=== PATIENT | male | born 1945 | race Caucasian/White ===

== ENCOUNTER 2022-01-11 14:28 | Emergency (ER) | payer OTHER, MEDICARE ==
[2022-01-11 15:19] VITALS: TEMP 97.6
[2022-01-11] MEDS ORDERED: SODIUM CHLORIDE 0.9% 500 ML 500 ML IV STA (18:14)
[2022-01-11] MEDS ORDERED: ONDANSETRON 4 MG/2 ML VIAL IVP STA (18:14)
[2022-01-11 19:01] LABS: Appearance,Urine Clear (Clear); Bilirubin,Urine Negative (Negative); Blood,Urine Negative (Negative); Color,Urine Light Yellow; Glucose,Urine (UA) Negative (Negative); Ketones,Urine Negative (Negative); Leukocyte Esterase,Urine Negative (Negative); Nitrite,Urine Negative (Negative); PH, Urine 6.5 (5.0-8.0); Protein,Urine Negative (Negative); Specific Gravity,Urine 1.004 (1.001-1.035); Urobilinogen,Urine <2.0 mg/dL (<2.0)
[2022-01-11 19:08] LABS: Albumin 4.1 g/dL (3.5-5.0); Calcium 8.8 mg/dL (8.4-10.2); Potassium 4.8 mmol/L (3.5-5.1); Total Bilirubin 0.7 mg/dL (0.2-1.3); Total Protein 6.4 g/dL (6.3-8.2)
[2022-01-11 19:12] LABS: Partial Thromboplastin Time 25.9 sec (22.0-30.0); Prothrombin Time 10.7 sec (9.0-12.0)
[2022-01-11 19:23] LABS: Basophils % (A) 0 %; Eosinophils # (A) 0.1 k/uL (0-0.7); Eosinophils % (A) 1 %; HCT 37.4 % (39.0-53.0); Lymphocytes # (A) 0.9 k/uL (1.0-4.8); Lymphocytes % (A) 17 %; MCH 31.7 pg (25.0-35.0); MCHC 34.9 g/dL (31.0-37.0); MCV 90.8 fL (80.0-100.0); Mean Platelet Volume 7.2; Monocytes # (A) 0.3 k/uL (0-1.0); Monocytes % (A) 6 %; Neutrophils # (A) 3.8 k/uL (1.3-7.7); Neutrophils % (A) 74 %; Platelet Count 172 k/uL (150-450); RBC 4.12 m/uL (4.30-5.90); RDW 13.9 % (11.5-15.5); WBC 5.1 k/uL (3.8-10.6)
--- NOTE | 2022-01-11 20:00 | CT ---
EXAMINATION TYPE: CT abdomen pelvis w con DATE OF EXAM: 01/11/2022 COMPARISON: None available HISTORY: dizzy, nausea and weakness CT DLP: 1087.9 mGycm Automated exposure control for dose reduction was used. TECHNIQUE: Helical acquisition of images was performed from the lung bases through the pelvis. CONTRAST: Performed without Oral Contrast and with IV Contrast, patient injected with 100 mL of Isovue 300. FINDINGS: LUNG BASES: No significant abnormality is appreciated. LIVER/GB: Cholecystectomy with moderate pneumobilia. Otherwise no acute abnormality is appreciated. PANCREAS: No acute abnormality is seen. Absence of the pancreatic body and tail, consistent with stef enital versus chronic change. SPLEEN: No significant abnormality is seen. ADRENALS: No significant abnormality is seen. KIDNEYS: No significant abnormality is seen. FREE AIR: No free air is visualized. RETROPERITONEAL ADENOPATHY: None visualized REPRODUCTIVE ORGANS: No significant abnormality is seen URINARY BLADDER: No significant abnormality is seen. PELVIC ADENOPATHY: None visualized. OSSEOUS STRUCTURES: No significant abnormality is seen. BOWEL: No acute abnormality is seen. Small ventral hernia partially with laxity of the abdominal wal l and partially containing bowel loops. No bowel obstruction. No acute appendicitis. OTHER: None IMPRESSION: CHOLECYSTECTOMY WITH PNEUMOBILIA, LIKELY BENIGN AND SECONDARY TO INCOMPETENT VALVE. OTHERWISE NO ACUTE ABNORMALITY. CHRONIC AND INCIDENTAL FINDINGS ABOVE.
[2022-01-11 20:21] VITALS: RESP 16
--- NOTE | 2022-01-11 20:21 | ED ---
General Adult HPI - General Chief complaint: Nausea/Vomiting/Diarrhea Stated complaint: Dizziness/Shaking Time Seen by Provider: 01/11/22 18:05 Source: patient, family, RN notes reviewed, old records reviewed Mode of arrival: wheelchair Limitations: no limitations - History of Present Illness Initial comments: This is a 76-year-old male that presents to the emergency room with complaints of persistent nausea, dry mouth and decreased appetite with occasional dizziness. Patient states he has been seen at [facility] on Sunday and again on Sunday for persistent nausea. He did call his primary care doctor and they referred him back to an emergency room for evaluation. Patient states that he had blood tests and x-rays done at the previous hospital and was prescribed Zofran but he still feels nauseated. He denies any chest pain or d ifficulty in breathing. No fevers. No cough. Location: abdomen Severity scale (1-10): 4 Consistency: intermittent Associated Symptoms: loss of appetite, nausea/vomiting, other (dizzy) Treatments Prior to Arrival: other (2 ER visits to [facility]) - Related Data Home Medications Medication Instructions Recorded Confirmed HYDROcodone/APAP 7.5-325MG [[place] 1 tab PO BID PRN 01/11/22 01/11/22 7.5-325] Loratadine 10 mg PO DAILY 01/11/22 01/11/22 Methocarbamol [Robaxin-750] 750 mg PO TID PRN 01/11/22 01/11/22 Morphine Sulfate ER [Ms Contin] 15 mg PO Q12HR 01/11/22 01/11/22 Simvastatin [Zocor] 80 mg PO HS 01/11/22 01/11/22 Vit C/E/Zn/Coppr/Lutein/Zeaxan 1 cap PO BID 01/11/22 01/11/22 [Preservision Areds 2 Softgel] lisinopriL [Zestril] 20 mg PO DAILY 01/11/22 01/11/22 metFORMIN HCL 500 mg PO BID 01/11/22 01/11/22 Previous Rx's Medication Instructions Recorded Famotidine [Pepcid] 20 mg PO BID #28 tablet 01/11/22 Metoclopramide [Reglan] 10 mg PO TID PRN #15 tab 01/11/22 Allergies Allergy/AdvReac Type Severity Reaction Status Date / Time niacin Allergy Rash/Hives Verified 01/11/22 20:22 vancomycin Allergy Rash/Hives Verified 01/11/22 20:22 Review of Systems ROS Statement: Those systems with pertinent positive or pertinent negative responses have been documented in the HPI. ROS Other: All systems not noted in ROS Statement are negative. 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 Absent: respiratory distress, chest wall tenderness Cardiovascular Exam: Present: regular rate GI/Abdominal exam: Present: soft. Absent: distended, tenderness Extremities exam: Present: normal capillary refill Back exam: Absent: tenderness, CVA tenderness (R), CVA tenderness (L) Neurological exam: Present: alert, oriented X3 Psychiatric exam: Present: normal affect, normal mood Skin exam: Present: warm, dry, normal color. Absent: cyanosis, diaphoretic, petechiae, pallor Course Vital Signs 01/11/22 01/11/22 01/11/22 15:11 20:20 21:37 Temperature 97.6 F Pulse Rate 61 58 L 65 Respiratory 20 16 Rate Blood Pressure 170/68 160/85 165/74 O2 Sat by Pulse 98 98 Oximetry EKG Findings - EKG Results: EKG: sinus rhythm (Sinus bradycardia with ventricular rate 57, MN interval 0.144, QRS 0.150, QTC 0.424) Medical Decision Making - Medical Decision Making This is the patient's third ER visit since Sunday. Patient was seen at [facility] on Sunday and again on Sunday for persistent nausea and decreased appetite. He did contact his primary care doctor today and was referred back to the emergency room for persistent nausea. I did attempt to obtain records from [facility] and was unsuccessful. On exam, abdomen soft and nontender. There is no right lower quadrant pain. Labs are unremarkable with no evidence of leukocytosis. CT abdomen was performed and shows no acute abnormality. Cholecystectomy noted. There is also a small ventral hernia noted. No evidence of acute appendicitis, no bowel obstruction. Vital signs are stable. Patient will be referred to his primary care doctor, given a prescription for Pe pcid and Reglan directed to discuss symptoms with his primary care doctor for possible referral to GI. Case discussed with Dr. Duff - Lab Data Result diagrams: 01/11/22 18:29 01/11/22 18:29 Lab Results 01/11/22 01/11/22 01/11/22 Range/Units 18:29 18:29 18:29 WBC 5.1 (3.8-10.6) k/uL RBC 4.12 L (4.30-5.90) m/uL Hgb 13.0 (13.0-17.5) gm/dL Hct 37.4 L (39.0-53.0) % MCV 90.8 (80.0-100.0) fL MCH 31.7 (25.0-35.0) pg MCHC 34.9 (31.0-37.0) g/dL RDW 13.9 (11.5-15.5) % Plt Count 172 (150-450) k/uL MPV 7.2 Neutrophils % 74 % Lymphocytes % 17 % Monocytes % 6 % Eosinophils % 1 % Basophils % 0 % Neutrophils # 3.8 (1.3-7.7) k/uL Lymphocytes # 0.9 L (1.0-4.8) k/uL Monocytes # 0.3 (0-1.0) k/uL Eosinophils # 0.1 (0-0.7) k/uL Basophils # 0.0 (0-0.2) k/uL PT (9.0-12.0) sec INR (<1.2) APTT (22.0-30.0) sec Sodium 134 L (137-145) mmol/L Potassium 4.8 (3.5-5.1) mmol/L Chloride 102 (98-107) mmol/L Carbon Dioxide 27 (22-30) mmol/L Anion Gap 5 mmol/L BUN 16 (9-20) mg/dL Creatinine 0.97 (0.66-1.25) mg/dL Est GFR (CKD-EPI)AfAm 89 (>60 ml/min/1.73 sqM) Est GFR (CKD-EPI)NonAf 77 (>60 ml/min/1.73 sqM) Glucose 162 H (74-99) mg/dL Plasma Lactic Acid Mor (0.7-2.0) mmol/L Calcium 8.8 (8.4-10.2) mg/dL Total Bilirubin 0.7 (0.2-1.3) mg/dL AST 33 (17-59) U/L ALT 24 (4-49) U/L Alkaline Phosphatase 71 (38-126) U/L Troponin I (0.000-0.034) ng/mL Total Protein 6.4 (6.3-8.2) g/dL Albumin 4.1 (3.5-5.0) g/dL Amylase 50 (30-110) U/L Lipase 117 (23-300) U/L Urine Color Light Yellow Urine Appearance Clear (Clear) Urine pH 6.5 (5.0-8.0) Ur Specific Ves[place] 1.004 (1.001-1.035) Urine Protein Negative (Negative) Urine Glucose (UA) Negative (Negative) Urine Ketones Negative (Negative) Urine Blood Negative (Negative) Urine Nitrite Negative (Negative) Urine Bilirubin Negative (Negative) Urine Urobilinogen <2.0 (<2.0) mg/dL Ur Leukocyte Esterase Negative (Negative) 01/11/22 01/11/22 01/11/22 Range/Units 18:29 18:29 18:29 WBC (3.8-10.6) k/uL RBC (4.30-5.90) m/uL Hgb (13.0-17.5) gm/dL Hct (39.0-53.0) % MCV (80.0-100.0) fL MCH (25.0-35.0) pg MCHC (31.0-37.0) g/dL RDW (11.5-15.5) % Plt Count (150-450) k/uL MPV Neutrophils % % Lymphocytes % % Monocytes % % Eosinophils % % Basophils % % Neutrophils # (1.3-7.7) k/uL Lymphocytes # (1.0-4.8) k/uL Monocytes # (0-1.0) k/uL Eosinophils # (0-0.7) k/uL Basophils # (0-0.2) k/uL PT 10.7 (9.0-12.0) sec INR 1.0 (<1.2) APTT 25.9 (22.0-30.0) sec Sodium (137-145) mmol/L Potassium (3.5-5.1) mmol/L Chloride (98-107) mmol/L Carbon Dioxide (22-30) mmol/L Anion Gap mmol/L BUN (9-20) mg/dL Creatinine (0.66-1.25) mg/dL Est GFR (CKD-EPI)AfAm (>60 ml/min/1.73 sqM) Est GFR (CKD-EPI)NonAf (>60 ml/min/1.73 sqM) Glucose (74-99) mg/dL Plasma Lactic Acid Mor 1.0 (0.7-2.0) mmol/L Calcium (8.4-10.2) mg/dL Total Bilirubin (0.2-1.3) mg/dL AST (17-59) U/L ALT (4-49) U/L Alkaline Phosphatase (38-126) U/L Troponin I <0.012 (0.000-0.034) ng/mL Total Protein (6.3-8.2) g/dL Albumin (3.5-5.0) g/dL Amylase (30-110) U/L Lipase (23-300) U/L Urine Color Urine Appearance (Clear) Urine pH (5.0-8.0) Ur Specific Vesper (1.001-1.035) Urine Protein (Negative) Urine Glucose (UA) (Negative) Urine Ketones (Negative) Urine Blood (Negative) Urine Nitrite (Negative) Urine Bilirubin (Negative) Urine Urobilinogen (<2.0) mg/dL Ur Leukocyte Esterase (Negative) Disposition Clinical Impression: Nausea Disposition: HOME SELF-CARE Condition: Good Instructions (If sedation given, give patient instructions): Acute Nausea and Vomiting (ED) Additional Instructions: Take the Reglan and Pepcid as prescribed. Do not take the Zofran as previously prescribed. Follow-up with the primary care doctor this week. Return to the emergency room with any new or concerning symptoms. Prescriptions: Famotidine [Pepcid] 20 mg PO BID #28 tablet Metoclopramide [Reglan] 10 mg PO TID PRN #15 tab PRN Reason: GERD Is patient prescribed a controlled substance at d/c from ED?: No Referrals: [facility],Clinic [Primary Care Provider] - 1-2 days Time of Disposition: 20:21
[2022-01-11] MEDS ORDERED: METOCLOPRAMIDE 5 MG/ML 2 ML VIAL IVP STA (20:48)
[2022-01-11] MEDS ORDERED: FAMOTIDINE 20 MG TAB PO STA (20:48)
[2022-01-11 21:41] VITALS: BP 165/74; PULSE 65
== END 2022-01-11 21:38 | disposition home or self-care (01) ==
LOC: EC 14:28
DX: R11.2 Nausea with vomiting, unspecified (principal); E11.9 Type 2 diabetes mellitus without complications; E78.5 Hyperlipidemia, unspecified; I10 Essential (primary) hypertension; Z87.891 Personal history of nicotine dependence; Z88.1 Allergy status to other antibiotic agents; Z88.3 Allergy status to other anti-infective agents
CPT/HCPCS: 36415; 93005; 80053; 82150; 83605; 83690; 84484; 85025; 85610; 85730; 81003; 74177; 99284; 96374; 96375; J2765; J2405; Q9967

== ENCOUNTER 2022-08-09 14:02 | Emergency (ER) | payer OTHER, MEDICARE ==
[2022-08-09 15:00] VITALS: TEMP 98.5
--- NOTE | 2022-08-09 16:17 | XR ---
EXAMINATION TYPE: XR chest 2V DATE OF EXAM: 08/09/2022 COMPARISON: NONE HISTORY: Cough. TECHNIQUE: Frontal and lateral views of the chest are obtained. FINDINGS: Eventration of the anterior aspect right hemidiaphragm. There is no suspicious focal air sp mathew opacity, pleural effusion, or pneumothorax seen. The cardiac silhouette size is within normal li mits. The osseous structures are intact. Cholecystectomy clips noted on lateral view. IMPRESSION: No acute pulmonary process.
[2022-08-09] MEDS ORDERED: methylPREDNISolone SOD SUCCI 125 MG/2 ML VIAL IM ONE (16:51)
--- NOTE | 2022-08-09 16:53 | ED ---
URI HPI - General Chief Complaint: Upper Respiratory Infection Stated Complaint: sob, cough - sent urgent care Time Seen by Provider: 08/09/22 16:24 Source: patient Mode of arrival: ambulatory Limitations: no limitations - History of Present Illness Initial Comments: Patient is a 77-year-old male with history of diabetes, hypertension, hyperlipidemia presenting with chief complaint of cough. Patient was sent from urgent care. Patient has been experiencing cough for the last 3 weeks. He was treated recently with doxycycline and prednisone at home. He has been taking nebulized albuterol treatments at home as well. States that he is coughing frequently and is affecting his sleep. He feels that he has phlegm that he cannot cough up. No chest pain or difficulty breathing. No palpitations, abdominal pain, nausea, vomiting, headache, vision or hearing changes, neck pain or stiffness, fever, chills. - Related Data Home Medications Medication Instructions Recorded Confirmed HYDROcodone/APAP 7.5-325MG [[place] 1 tab PO BID PRN 01/11/22 01/11/22 7.5-325] Loratadine 10 mg PO DAILY 01/11/22 01/11/22 Morphine Sulfate ER [Ms Contin] 15 mg PO Q12HR 01/11/22 01/11/22 Simvastatin [Zocor] 80 mg PO HS 01/11/22 01/11/22 Vit C/E/Zn/Coppr/Lutein/Zeaxan 1 cap PO BID 01/11/22 01/11/22 [Preservision Areds 2 Softgel] lisinopriL [Zestril] 20 mg PO DAILY 01/11/22 01/11/22 metFORMIN HCL 500 mg PO BID 01/11/22 01/11/22 methocarbamoL [Robaxin-750] 750 mg PO TID PRN 01/11/22 01/11/22 Previous Rx's Medication Instructions Recorded Famotidine [Pepcid] 20 mg PO BID #28 tablet 01/11/22 Metoclopramide [Reglan] 10 mg PO TID PRN #15 tab 01/11/22 Albuterol Nebulized [Ventolin 2.5 mg INHALATION Q4H PRN 8 Days 08/09/22 Nebulized] #150 ml methylPREDNISolone Dose Pack 4 mg PO DIRECTED #1 packet 08/09/22 [Medrol Dose Pack] Allergies Allergy/AdvReac Type Severity Reaction Status Date / Time niacin Allergy Rash/Hives Verified 08/09/22 15:00 vancomycin Allergy Rash/Hives Verified 08/09/22 15:00 Review of Systems ROS Statement: Those systems with pertinent positive or pertinent negative responses have been documented in the HPI. ROS Other: All systems not noted in ROS Statement are negative. 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, cholesterol eye stroke, macular degeneration, reversed heart valve History of Any Multi-Drug Resistant Organisms: None Reported Past Surgical History: Cholecystectomy, Tonsillectomy Additional Past Surgical History / Comment(s): cataract Past Psychological History: Depression Smoking Status: Former smoker Past Alcohol Use History: None Reported Past Drug Use History: None Reported General Exam Limitations: no limitations General appearance: alert, in no apparent distress Head exam: Present: atraumatic, normocephalic, normal inspection Eye exam: Absent: scleral icterus, conjunctival injection, periorbital swelling Neck exam: Present: normal inspection Respiratory exam: Present: rhonchi. Absent: respiratory distress, wheezes, rales, stridor, accessory muscle use Cardiovascular Exam: Present: regular rate, normal rhythm, normal heart sounds. Absent: systolic murmur, diastolic murmur, rubs, gallop, clicks Neurological exam: Present: alert, oriented X3, CN II-XII intact Psychiatric exam: Present: normal affect, normal mood Skin exam: Present: warm, dry, intact, normal color. Absent: rash Course Vital Signs 08/09/22 14:58 Temperature 98.5 F Pulse Rate 73 Respiratory 20 Rate Blood Pressure 137/70 O2 Sat by Pulse 95 Oximetry Medical Decision Making - Medical Decision Making Patient is a 77-year-old male presenting with chief complaint of persistent cough. He has had symptoms for the last 3 weeks. Completed a course of doxycycline and prednisone. Sent here by urgent care. On physical examination there are diffuse rhonchi, lung sounds do improve after coughing. Patient is negative for influenza, RSV, covid. Chest x-ray shows no acute cardiopulmonary process. On my interpretation I do see eventration right hemidiaphragm, but no consolidation or other acute process. Patient is educated on these findings, he is provided with Solu-Medrol 125 IM and Medrol Dosepak for home. Prescription sent for albuterol nebulizer refills.Follow-up with PCP. Report back to ER with any new or worsening symptoms. Discussed return parameters and answered all questions. Patient conveyed verbal understanding and agreed to the plan. I discussed this case in detail with my attending Dr. Morataya - Lab Data Lab Results 08/09/22 Range/Units 15:02 Influenza Type A (PCR) Not Detected (Not Detectd) Influenza Type B (PCR) Not Detected (Not Detectd) RSV (PCR) Not Detected (Not Detectd) SARS-CoV-2 (PCR) Not Detected (Not Detectd) Disposition Clinical Impression: Bronchitis Disposition: HOME SELF-CARE Condition: Good Instructions (If sedation given, give patient instructions): Acute Bronchitis (ED) Additional Instructions: Follow-up with PCP. Report back to ER with any new or worsening symptoms. Take medication as prescribed. Prescriptions: methylPREDNISolone Dose Pack [Medrol Dose Pack] 4 mg PO DIRECTED #1 packet Albuterol Nebulized [Ventolin Nebulized] 2.5 mg INHALATION Q4H PRN 8 Days #150 ml PRN Reason: Shortness Of Breath Is patient prescribed a controlled substance at d/c from ED?: No Referrals: [facility],Clinic [Primary Care Provider] - 1-2 days Time of Disposition: 16:52
[2022-08-09 17:46] VITALS: BP 147/85; PULSE 78; RESP 22
== END 2022-08-09 17:46 | disposition home or self-care (01) ==
LOC: EC 14:02 → SUPCPDRO 14:02 → EC 17:46
DX: J40 Bronchitis, not specified as acute or chronic (principal); F32.A Depression, unspecified; E11.9 Type 2 diabetes mellitus without complications; I10 Essential (primary) hypertension; E78.5 Hyperlipidemia, unspecified; Z79.899 Other long term (current) drug therapy; Z79.891 Long term (current) use of opiate analgesic; Z79.2 Long term (current) use of antibiotics; Z20.822 Contact with and (suspected) exposure to COVID-19
CPT/HCPCS: 87636; 71046; 99284; 96372; J2930

== ENCOUNTER → 2023-11-07 | Outpatient (CLI) | payer OTHER ==
--- NOTE | 2023-11-08 15:35 | US ---
EXAMINATION TYPE: US groin RT DATE OF EXAM: 11/07/2023 COMPARISON: 01/11/2022 - CT CLINICAL INDICATION: Male, 78 years old with history of G89.29 other chronic pain; Hx Epigastric jimmy ia, Right groin pain x few months TECHNIQUE: Multiple sonographic images of the right inguinal region. FINDINGS: Recovery Manager notes: ? Fat containing hernia - no peristalsis seen at AOC = 2.7 x 1.1 x 1.8 cm ? Lymph node with solid mass = 4.4 x 1.0 x 2.3 cm IMPRESSION: 1. Possible fatty right inguinal hernia measuring 2.7 cm at the area of concern. 2. Additionally, there is the appearance of an enlarged inguinal lymph node measuring up to 4.4 x 2.3 x 1.0 cm. Depending on clinical impression and physical exam findings, either short interval follow- up ultrasound versus further imaging assessment such as with CT abdomen and pelvis and tissue samplin g.
== END | disposition home or self-care (01) ==
LOC: RADUSWWP 11:45
PROVIDERS: ATTEND Family Medicine
DX: G89.29 Other chronic pain (principal); R59.0 Localized enlarged lymph nodes

== ENCOUNTER → 2023-11-29 | Outpatient (CLI) | payer OTHER ==
--- NOTE | 2023-11-29 16:06 | CT ---
EXAMINATION TYPE: CT abdomen pelvis wo con DATE OF EXAM: 11/29/2023 COMPARISON: 01/11/2022 INDICATION: right inguinal pain and lower back pain x1 year DLP: 1081 mGycm, Automated exposure control for dose reduction was used. CONTRAST: 0 mL of Isovue 300. Study performed with Oral Contrast TECHNIQUE: Axial images were obtained from above the diaphragm to the pubic rami in the axial plane a t 5 mm thick sections. Reconstructed images are reviewed on the computer in the coronal plane. FINDINGS: Limited CT sections are obtained the lung bases. The lung bases are clear. CT ABDOMEN: Large anterior abdominal wall hernia is present with loops of bowel present. No obstructi on identified. No inguinal hernia is evident. Liver: Biliary air is present. Spleen: Normal Pancreas: Normal Adrenal glands: The adrenal glands are normal. Gallbladder: Surgically absent Kidneys: No masses are evident. No hydronephrosis is present. No cysts are present. No renal stone s are evident Aorta: Vascular calcification is within the aorta. There are a few small lymph nodes within the inguinal regions. No suspicious enlarged adenopathy is e vident Inferior vena cava: Normal. CT PELVIS: Loops of bowel within the abdomen and pelvis are normal. There are loops of bowel which are incom pletely distended or lack oral contrast limiting their evaluation. Appendix: Not identified. No suspicious dilated to restructure inflammatory changes evident. Urinary bladder: Decompressed with limited evaluation Genitourinary structures: Prostate appears normal Osseous structures: No suspicious lytic or sclerotic lesions. IMPRESSION: 1. Anterior abdominal wall hernia containing loops of bowel without obstruction. 2. Biliary air, present previously.
== END | disposition home or self-care (01) ==
LOC: RADCTMAIN 11:12
PROVIDERS: ATTEND Family Medicine
DX: K43.9 Ventral hernia without obstruction or gangrene (principal); M54.50 Low back pain, unspecified; R59.0 Localized enlarged lymph nodes
CPT/HCPCS: 74176